=== PATIENT | female | born 1990 ===

== ENCOUNTER 2020-12-05 15:01 | Emergency (ER) | payer MEDICAID ==
[2020-12-05 15:06] VITALS: BP 119/74
--- NOTE | 2020-12-05 15:17 | Emergency Department Report ---
ED Female HPI - General Chief complaint: Urogenital-Female Stated complaint: CYST CATHETER COMING OUT Time Seen by Provider: 12/05/20 15:06 Source: patient Mode of arrival: Ambulatory Limitations: No Limitations - History of Present Illness Initial comments: Patient is a 30-year-old female presents emergency room wanting to have her words catheter evaluated. States that she was concerned it was starting to come out. Patient states that she had a Bartholins cyst drained at [facility]. she states that she was advised to keep the catheter in for 2 weeks and then follow up with her [employer]. States that she was given ibuprofen and doxycycline. She denies any fever, increased drainage, vomiting, chills. She denies any past medical history or allergies to medications. She states her menstrual cycle just started. - Related Data Previous Rx's Medication Instructions Recorded Last Taken Type HYDROcodone/APAP 5-325 [[place] 1 each PO Q6HR PRN #12 tablet 12/05/20 Unknown Rx 5/325] metroNIDAZOLE [Flagyl] 500 mg PO BID 7 Days #14 tab 12/05/20 Unknown Rx Allergies Allergy/AdvReac Type Severity Reaction Status Date / Time No Known Allergies Allergy Unverified 12/05/20 15:02 ED Review of Systems ROS: Stated complaint: CYST CATHETER COMING OUT Other details as noted in HPI Comment: All other systems reviewed and negative ED Past Medical Hx - Medications Home Medications: Home Medications Medication Instructions Recorded Confirmed Last Taken Type HYDROcodone/APAP 5-325 [[place] 1 each PO Q6HR PRN #12 tablet 12/05/20 Unknown Rx 5/325] metroNIDAZOLE [Flagyl] 500 mg PO BID 7 Days #14 tab 12/05/20 Unknown Rx ED Physical Exam - General Limitations: No Limitations General appearance: alert, in no apparent distress - Head Head exam: Present: atraumatic, normocephalic - Eye Eye exam: Present: normal appearance - ENT ENT exam: Present: mucous membranes moist - External exam: Present: 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, there is a word catheter in place to the right inner labia which appears in appropriate position, no drainage, no increased warmth, no edema, no erythema) - Neurological Exam Neurological exam: Present: alert, oriented X3 - Psychiatric Psychiatric exam: Present: normal affect, normal mood - Skin Skin exam: Present: warm, dry ED Course Vital Signs 10/09/21 10/09/21 15:02 15:30 Temperature 98.5 F Pulse Rate 96 H 96 H Respiratory 14 12 Rate Blood Pressure 119/74 [Right] O2 Sat by Pulse 100 Oximetry ED Medical Decision Making - Medical Decision Making Patient is a 30-year-old female presents emergency room wanting to have her words catheter evaluated. States that she was concerned it was starting to come out. Patient states that she had a Bartholins cyst drained at [facility]. she states that she was advised to keep the catheter in for 2 weeks and then follow up with her [employer]. States that she was given ibuprofen and doxycycline. She denies any fever, increased drainage, vomiting, chills. She denies any past medical history or allergies to medications. She states her menstrual cycle just started. Vitals are normal. 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 It appears words catheter is still in place appropriately at this time. Will give patient short course of pain medication. will also add Flagyl to cover for BV. advised pt Please take medication as prescribed. Please continue taking your medication you were given by the other emergency room. Please follow-up with your T[employer]. Return to emergency room for any new or worsening symptoms. Critical care attestation.: If time is entered above; I have spent that time in minutes in the direct care of this critically ill patient, excluding procedure time. ED Disposition Clinical Impression: Bartholin's cyst Disposition: 01 HOME / SELF CARE / HOMELESS Is pt being admited?: No Does the pt Need Aspirin: No Condition: Stable Instructions: Bartholin's Cyst Additional Instructions: Please take medication as prescribed. Please continue taking your medication you were given by the other emergency room. Please follow-up with your TOWER [employer]EM[employer]. Return to emergency room for any new or worsening symptoms. Prescriptions: metroNIDAZOLE [Flagyl] 500 mg PO BID 7 Days #14 tab HYDROcodone/APAP 5-325 [Mendon 5/325] 1 each PO Q6HR PRN #12 tablet PRN Reason: Pain , Severe (7-10) Referrals: your, rouge miller [Other] - 3-5 Days Time of Disposition: 15:16 Print Language: ESTONIAN
== END 2020-12-05 16:37 | disposition home or self-care (01) ==
LOC: ED 15:01
DX: N75.0 Cyst of Bartholin's gland (principal)
CPT/HCPCS: 99282